=== PATIENT | female | born 1980 | race Caucasian/White ===

== ENCOUNTER 2018-09-14 13:27 | Emergency (ER) | payer MEDICAID ==
[2018-09-14 14:11] VITALS: BP 128/79; PULSE 90; RESP 16; TEMP 98.8; O2SAT 100
[2018-09-14] MEDS ORDERED: Amoxicillin-Clav 500-125 mg Tab PO STA (14:21)
--- NOTE | 2018-09-14 14:24 | ED PDOC ---
HPI: CCC, URI, Sore Throat Time Seen by Provider: 09/14/18 14:14 Chief Complaint (Nursing): Flu-like Symptoms Chief Complaint (Provider): Flu-like Symptoms History Per: Patient History/Exam Limitations: no limitations Have you had recent travel within the past 21 days to any of the following countries: [place], [place], [place] or [place]?: No Onset/Duration Of Symptoms: Days (x2 weeks) Current Symptoms Are (Timing): Still Present Sick Contacts (Context): None Associated Symptoms: Cough, Nasal Congestion. denies: Fever, Chills, Sore Throat, Nausea, Vomiting Additional Complaint(s): Tammy Bell is a 38 year old female with a past medical history of migraines, who presents to the emergency department complaining of body aches, cough and congestion, onset x2 weeks. Patient states that this week she developed bilateral facial pain that is worse when she bends her neck forward. She reports that she took Advil but has had minimal relief. Patient denies any fever, chills, shortness of breath, hemoptysis, chest pain, head injury, loss of consciousness, nausea, vomiting, sick contact, sore throat or travel. PMD: No provider Past Medical History Reviewed: Historical Data, Nursing Documentation, Vital Signs Vital Signs: Last Vital Signs Temp 98.8 F 09/14/18 14:07 Pulse 90 09/14/18 14:07 Resp 16 09/14/18 14:07 BP 128/79 09/14/18 14:07 Pulse Ox 100 09/14/18 14:07 - Medical History PMH: Migraine - Surgical History Surgical History: No Surg Hx - Family History Family History: States: Unknown Family Hx - Immunization History Hx Tetanus Toxoid Vaccination: No Hx Influenza Vaccination: No Hx Pneumococcal Vaccination: No - Home Medications Home Medications: Ambulatory Orders Medication Instructions Recorded Amoxicillin/Potassium Clav 1 each PO BID #19 tablet 09/14/18 [Augmentin 500-125 Tablet] Benzonatate [Tessalon Perle] 100 mg PO Q8 PRN #10 capsule 09/14/18 Fluticasone Propionate [Flonase] 2 spr NS DAILY PRN #1 bottle 09/14/18 Pseudoephedrine HCl [Sudafed] 60 mg PO Q8 PRN #10 tablet 09/14/18 - Allergies Allergies/Adverse Reactions: Allergies Allergy/AdvReac Type Severity Reaction Status Date / Time No Known Allergies Allergy Verified 09/14/18 14:07 Review of Systems ROS Statement: Except As Marked, All Systems Reviewed And Found Negative Constitutional: Positive for: Other (body ache). Negative for: Fever, Chills ENT: Positive for: Nose Congestion. Negative for: Throat Pain Cardiovascular: Negative for: Chest Pain Respiratory: Positive for: Cough. Negative for: Shortness of Breath, Hemoptysis Gastrointestinal: Negative for: Nausea, Vomiting Neurological: Positive for: Other (bilateral facial pain; (-)LOC) Physical Exam - Reviewed Nursing Documentation Reviewed: Yes Vital Signs Reviewed: Yes - Physical Exam Appears: Positive for: Non-toxic, No Acute Distress Head Exam: Positive for: ATRAUMATIC Skin: Positive for: Normal Color, Warm, Dry Eye Exam: Positive for: Normal appearance, EOMI, PERRL ENT: Positive for: Other (bilateral sinus pain and drainage). Negative for: Pharyngeal Erythema, Tonsillar Exudate, Tonsillar Swelling Respiratory: Positive for: Normal Breath Sounds. Negative for: Respiratory Distress Neurologic/Psych: Positive for: Alert, Oriented (x3). Negative for: Facial Droop - ECG O2 Sat by Pulse Oximetry: 100 (RA) Pulse Ox Interpretation: Normal Medical Decision Making Medical Decision Making: Time: 1420 Plan: --Ed urine --Pepcid 20 mg PO --Augmentin 1 tab Pepcid ordered as pt. states her stomach will hurt if she takes abx on an empty stomach. Scribe Attestation: Documented by Jasbir Cortez, acting as a scribe for Lenin Tong Provider Scribe Attestation: All medical record entries made by the Scribe were at my direction and personally dictated by me. I have reviewed the chart and agree that the record accurately reflects my personal performance of the history, physical exam, medical decision making, and the department course for this patient. I have also personally directed, reviewed, and agree with the discharge instructions and disposition. Disposition - Clinical Impression Clinical Impression: Sinusitis - Patient ED Disposition Is Patient to be Admitted: No - Disposition Referrals: Shayan Bright MD [Family Provider] - Disposition: Routine/Home Disposition Time: 14:23 Condition: STABLE Additional Instructions: FOLLOW UP WITH DR. BRIGHT FOR FURTHER EVALUATION RETURN TO ED IMMEDIATELY IF SYMPTOMS WORSEN TAMMY BELL, thank you for letting us take care of you today. Your provider was Flora العلي MD and you were treated for HEAD PAIN,BODY ACHES. The emergency medical care you received today was directed at your acute symptoms. If you were prescribed any medication, please fill it and take as directed. It may take several days for your symptoms to resolve. Return to the Emergency Department if your symptoms worsen, do not improve, or if you have any other problems. Please contact your doctor or call one of the physicians/clinics you have been referred to that are listed on the Patient Visit Information form that is included in your discharge packet. Bring any paperwork you were given at discharge with you along with any medications you are taking to your follow up visit. Our treatment cannot replace ongoing medical care by a primary care provider outside of the emergency department. Thank you for allowing the [facility] team to be part of your care today. If you had an X-Ray or CT scan: A Radiologist will review the ED reading if any change in treatment is needed we will contact you. If you had a blood, urine, or wound culture: It will take several days for the results, if any change in treatment is needed we will contact you. If you had an STI test: It will take 48 hours for the results. Please call after 1 week if you have not heard back. Prescriptions: Amoxicillin/Potassium Clav [Augmentin 500-125 Tablet] 1 each PO BID #19 tablet Benzonatate [Tessalon Perle] 100 mg PO Q8 PRN #10 capsule PRN Reason: Cough Fluticasone Propionate [Flonase] 2 spr NS DAILY PRN #1 bottle PRN Reason: Allergy Symptoms Pseudoephedrine HCl [Sudafed] 60 mg PO Q8 PRN #10 tablet PRN Reason: Nasal Congestion Instructions: Sinusitis, Adult (DC) Forms: [facility] (Czech)
[2018-09-14] MEDS ORDERED: Amoxicillin-Clav 500-125 mg Tab PO ONE (14:38)
== END 2018-09-14 14:52 | disposition home or self-care (01) ==
LOC: H.ER 13:27
DX: J32.9 Chronic sinusitis, unspecified (principal)

== ENCOUNTER 2018-10-18 18:50 | Emergency (ER) | payer MEDICAID ==
[2018-10-18 19:08] VITALS: BP 132/75; PULSE 115; RESP 20; O2SAT 97
[2018-10-18] MEDS ORDERED: Albuterol-Ipratrop 3 mg / 0.5 (3 ml) UD INH STA ×2 (19:41→20:34)
[2018-10-18] MEDS ORDERED: Albuterol-Ipratrop 3 mg / 0.5 (3 ml) UD ONE ×2 (19:48→20:46)
--- NOTE | 2018-10-18 20:13 | ED PDOC ---
HPI: Influenza Time Seen by Provider: 10/18/18 19:10 Chief Complaint: Cough, Cold, Congestion Chief Complaint (Provider): Flu-like symptoms History Per: Patient Exam Limitations: no limitations Onset/Duration Of Symptoms: Days (2) Additional complaint(s):: 38 year old female presents to the ED complaining of flu-like symptoms onset for 2 days. Patient reports of tactile fever, nasal congestion, cough and body ache. Otherwise, the patient is healthy with no other complaints. Pt. is tolerating po. Past Medical History Reviewed: Historical Data, Nursing Documentation, Vital Signs Vital Signs: Last Vital Signs Temp 99.3 F 10/18/18 19:07 Pulse 115 H 10/18/18 19:07 Resp 20 10/18/18 19:07 BP 132/75 10/18/18 19:07 Pulse Ox 97 10/18/18 19:07 - Medical History PMH: Migraine - Family History Family History: States: Unknown Family Hx - Immunization History Hx Tetanus Toxoid Vaccination: No Hx Influenza Vaccination: No Hx Pneumococcal Vaccination: No - Home Medications Home Medications: Ambulatory Orders Medication Instructions Recorded Amoxicillin/Potassium Clav 1 each PO BID #19 tablet 09/14/18 [Augmentin 500-125 Tablet] Benzonatate [Tessalon Perle] 100 mg PO Q8 PRN #10 capsule 09/14/18 Fluticasone Propionate [Flonase] 2 spr NS DAILY PRN #1 bottle 09/14/18 Pseudoephedrine HCl [Sudafed] 60 mg PO Q8 PRN #10 tablet 09/14/18 - Allergies Allergies/Adverse Reactions: Allergies Allergy/AdvReac Type Severity Reaction Status Date / Time No Known Allergies Allergy Verified 10/18/18 19:07 Review of Systems ROS Statement: Except As Marked, All Systems Reviewed And Found Negative Constitutional: Positive for: Fever, Other (body ache) ENT: Positive for: Nose Congestion Respiratory: Positive for: Cough Physical Exam - Reviewed Nursing Documentation Reviewed: Yes Vital Signs Reviewed: Yes - Physical Exam Appears: Positive for: Well, Non-toxic, No Acute Distress Head Exam: Positive for: ATRAUMATIC, NORMAL INSPECTION, NORMOCEPHALIC Skin: Positive for: Normal Color, Warm, DRY Eye Exam: Positive for: EOMI, Normal appearance, PERRL ENT: Positive for: Pharynx Is (normal), TM Is/Are (normal bilaterally), Other (frequent bronchospastic cough, Other: no sinus swelling or tenderness ) Neck: Positive for: Normal, Painless ROM Cardiovascular/Chest: Positive for: Regular Rate, Rhythm. Negative for: Murmur Respiratory: Positive for: Normal Breath Sounds. Negative for: Rhonchi, Wheezing, Respiratory Distress Gastrointestinal/Abdominal: Positive for: Normal Exam, Soft. Negative for: Tenderness Extremity: Positive for: Normal ROM. Negative for: Deformity Lymphatic: Positive for: Normal Exam Neurological/Psych: Positive for: Awake, Alert, Normal Tone, Oriented (x3) Medical Decision Making Medical Decision Making: Time: 1940 Plan: ED urine dipstick ED urine Chest two views [RAD] Albuterol 3ml Ibuprofen 600mg Peak flow pre/post TX Influenza A B neg CXR: no infiltrate; as read by me. U.preg: neg Pt. given duoneb with some improvement in cough. 2nd duoneb given. On reassessment, pt. feeling better, lungs clear, pulse ox: 99% on RA. repeat hr 88. Scribe Attestation: Documented by Cheryl Mckinney acting as a scribe for Micheline Aguilera PA-C. Provider Scribe Attestation: All medical record entries made by the Scribe were at my direction and personally dictated by me. I have reviewed the chart and agree that the record accurately reflects my personal performance of the history, physical exam, medical decision making, and the department course for this patient. I have also personally directed, reviewed, and agree with the discharge instructions and disposition. - ECG O2 Sat by Pulse Oximetry: 97 (RA) Pulse Ox Interpretation: Normal Disposition - Clinical Impression Clinical Impression: Flu-like symptoms - Patient ED Disposition Is Patient to be Admitted: No Counseled Patient/Family Regarding: Smoking Cessation - Disposition Referrals: [facility] [Outside] Disposition: Routine/Home Disposition Time: 21:41 Condition: STABLE Instructions: Viral Upper Respiratory Infection, Adult (DC) Forms: [employer] [facility] ([employer]), [facility] ED School/Work Excuse
[2018-10-18 22:05] VITALS: TEMP 99.1
--- NOTE | 2018-10-19 10:07 | RAD ---
Date of service: 10/18/2018 HISTORY: cough COMPARISON: No prior. TECHNIQUE: Chest PA and lateral views FINDINGS: LUNGS: No active pulmonary disease. Few tiny nodular density seen in the right upper lung field felt to represent vessel on end artifact. PLEURA: No significant pleural effusion identified. No pneumothorax apparent. CARDIOVASCULAR: No aortic atherosclerotic calcification present. Normal cardiac size. No pulmonary vascular congestion. OSSEOUS STRUCTURES: No significant abnormalities. VISUALIZED UPPER ABDOMEN: Normal. OTHER FINDINGS: None. IMPRESSION: No active disease.
== END 2018-10-18 21:45 | disposition home or self-care (01) ==
LOC: H.ER 18:50
DX: J11.1 Influenza due to unidentified influenza virus with other respiratory manifestations (principal)